=== PATIENT | male | born 1985 | race Caucasian/White ===

== ENCOUNTER 2019-05-04 01:05 | Emergency (ER) | payer OTHER ==
[~2019-05-04] VITALS: Ht 180.3 cm; Wt 124.0 kg
--- NOTE | 2019-05-04 02:00 | NUR ---
Pt presents to ed c/o sob this evening and R arm numbness while at work. Denies any cardiac hx/anxiety. Denies increase in stimulants. Denies extrenuous activity. States sob and numbness resolving. All monitoring applied. Vss. Call light within reach.
--- NOTE | 2019-05-04 02:09 | NUR ---
vss stable pt denied pain at this time md will be seen soon
[2019-05-04 03:11] VITALS: BP 138/78
--- NOTE | 2019-05-04 03:13 | NUR ---
vss stable still waiting for lab result
[2019-05-04 03:15] LABS: BASOPHILS # (AUTO) 0.04 x10^3/uL (0-0.1); BASOPHILS % (AUTO) 0 % (0-1); EOSINOPHILS # (AUTO) 0.25 x10^3/uL (0-0.4); EOSINOPHILS % (AUTO) 3 % (1-7); LYMPHOCYTES # (AUTO) 3.05 x10^3/uL (1-3.4); LYMPHOCYTES % (AUTO) 32 % (22-44); MD NO; MEAN CORPUSCULAR HEMOGLOBIN 29.2 pg (27.5-34.5); MEAN CORPUSCULAR HGB CONC 33.8 g/dL (33.2-36.2); MEAN CORPUSCULAR VOLUME 86.3 fL (81-97); MEAN PLATELET VOLUME 7.5 fL (7.4-10.4); MONOCYTES # (AUTO) 0.87 x10^3/uL (0.2-0.8); MONOCYTES % (AUTO) 9 % (2-9); NEUTROPHILS # (AUTO) 5.34 x10^3/uL (1.8-6.8); NEUTROPHILS % (AUTO) 56 % (42-75); PLATELET COUNT 244 x10^3/uL (130-400); RED BLOOD COUNT 5.73 x10^6/uL (4.38-5.82); RED CELL DISTRIBUTION WIDTH 12.8 % (9.4-14.8)
[2019-05-04 03:21] LABS: ALBUMIN 4.1 g/dL (3.4-5.0); ANION GAP 6 mmol/L (5-15); CHLORIDE 111 mmol/L (98-107); T4 (THYROXINE) 8.3 mcg/dL (4.5-12.1)
[2019-05-04 03:25] LABS: TROPONIN I < 0.015 ng/mL (0.000-0.045)
== END 2019-05-04 05:00 | disposition home or self-care (01) ==
LOC: ED 04:50
DX: R06.00 Dyspnea, unspecified (principal); R20.2 Paresthesia of skin; R06.02 Shortness of breath; F17.200 Nicotine dependence, unspecified, uncomplicated
CPT/HCPCS: 36415; 70450; 71046; 80048; 82040; 83880; 84436; 84443; 84484; 85025; 93005; 99284